=== PATIENT | male | born 1960 | race Two or more races ===

== ENCOUNTER 2022-05-12 08:09 | Emergency (ER) | payer OTHER ==
[~2022-05-12] VITALS: Ht 172.7 cm; Wt 79.4 kg
[2022-05-12] MEDS ORDERED: HYZAAR 100-251 EACH PO (08:56)
[2022-05-12] MEDS ORDERED: SYNTHROID175 MCG PO (08:56)
[2022-05-12] MEDS ORDERED: CRESTOR20 MG PO (08:57)
[2022-05-12] MEDS ORDERED: ADULT LOW DOSE81 M1 PO (08:57)
== END 2022-05-12 10:28 | disposition home or self-care (01) ==
LOC: ER 08:09
DX: S01.122A Laceration with foreign body of left eyelid and periocular area, initial encounter (principal); W18.30XA Fall on same level, unspecified, initial encounter; Y93.9 Activity, unspecified; Y92.019 Unspecified place in single-family (private) house as the place of occurrence of the external cause

== ENCOUNTER 2023-09-19 09:45 | Inpatient (IN) | payer OTHER ==
[~2023-09-19] VITALS: Ht 172.7 cm; Wt 79.4 kg
[~2023-09-19 09:45] MED LIST: ADULT LOW DOSE81 M1 PO; CRESTOR20 MG PO; HYZAAR 100-251 EACH PO; SYNTHROID175 MCG PO
[2023-09-19 11:07] LABS: URINE APPEARANCE Clear; URINE BILIRRUBIN Negative (NEGATIVE); URINE BLOOD Negative; URINE COLOR Yellow; URINE GLUCOSE Negative (NEGATIVE); URINE LEUKOCYTE Negative; URINE NITRATE Negative; URINE PROTEIN Negative (NEGATIVE)
[2023-09-19 11:08] LABS: HEMATOCRIT 43.6 % (39.0-48.0); HEMOGLOBIN 14.8 g/dL (13-16.00); MEAN CORPUSCULAR HEMOGLOBIN 30.6 pg (27.00-32.0); PLATELET COUNT 191 K/uL (150-450); RED BLOOD COUNT 4.84 M/uL (4.00-6.00); RED CELL DISTRIBUTION WIDTH 13.6 % (11.5-14.5)
[2023-09-19 11:10] LABS: URINE EPITHELIAL CELLS 1.8 uL (0.0-38.8); URINE WBC 2.1 uL (0.0-23.2)
[2023-09-19 11:14] LABS: URINE BACTERIA 3.7 uL (0.0-1933); URINE RBC 1.7 uL (0.0-20.8)
[2023-09-19 11:28] LABS: PARTIAL THROMBOPLASTIN TIME 23.7 SECONDS (22.0-34.0); PROTHROMBIN TIME 10.5 SECONDS (9.0-11.5)
[2023-09-19 11:42] LABS: ALBUMIN 4.3 gm/dL (3.4-5.0); BILIRUBIN TOTAL 0.53 mg/dL (0.3-1.2); CALCIUM 9.5 mg/dL (8.5-10.1); CREATININE SERUM 0.87 mg/dL (0.70-1.30); GFR 88.91; GLOBULINA 3.1 G/DL (2.4-3.5); POTASSIUM 4.28 mEq/L (3.5-5.1); TOTAL PROTEIN 7.4 gm/dL (6.4-8.2)
[2023-09-26 06:49] LABS: HEMOGLOBIN 11.2 g/dL (13-16.00); MEAN CORPUSCULAR HEMOGLOBIN 30.9 pg (27.00-32.0); MEAN CORPUSCULAR HGB CONC 33.9 g/dl (32.0-36.0); PLATELET COUNT 147 K/uL (150-450); RED BLOOD COUNT 3.63 M/uL (4.00-6.00); RED CELL DISTRIBUTION WIDTH 14.1 % (11.5-14.5)
[2023-09-26] MEDS ORDERED: PERCOCET 5-3251 EACH PO (08:19)
[2023-09-26] MEDS ORDERED: DUI500 PO (08:19)
[2023-09-26] MEDS ORDERED: ELIQUIS2.5 MG PO (08:19)
[2023-09-27 07:35] LABS: HEMOGLOBIN 10.2 g/dL (13-16.00); MEAN CELL VOLUME 91.9 fL (80.0-100.00); MEAN CORPUSCULAR HEMOGLOBIN 31.2 pg (27.00-32.0); MEAN CORPUSCULAR HGB CONC 33.9 g/dl (32.0-36.0); PLATELET COUNT 131 K/uL (150-450); RED BLOOD COUNT 3.26 M/uL (4.00-6.00); RED CELL DISTRIBUTION WIDTH 14.1 % (11.5-14.5)
== END 2023-09-27 19:00 | DRG 470 ==
LOC: SURH 09-25 06:55 → O/R 09-25 06:55 → SURH 09-25 09:45
PROVIDERS: ADMIT Orthopaedic Surgery; ATTEND Orthopaedic Surgery
PROC: 0MBL0ZZ Excision of Right Hip Bursa and Ligament, Open Approach (ICD-10-PCS; 2023-09-25)
PROC: 0QU60JZ Supplement Right Upper Femur with Synthetic Substitute, Open Approach (ICD-10-PCS; 2023-09-25)
PROC: 0SR90JZ Replacement of Right Hip Joint with Synthetic Substitute, Open Approach (ICD-10-PCS; principal; 2023-09-25 12:30)
DX: M16.11 Unilateral primary osteoarthritis, right hip (principal); D62 Acute posthemorrhagic anemia; I10 Essential (primary) hypertension

== ENCOUNTER 2024-04-15 07:30 | Inpatient (IN) | payer OTHER ==
[~2024-04-15] VITALS: Ht 175.3 cm; Wt 83.9 kg
[~2024-04-15 07:30] MED LIST changes: +DUI500 PO; +ELIQUIS2.5 MG PO; +PERCOCET 5-3251 EACH PO
[2024-04-15 09:45] LABS: HEMATOCRIT 42.5 % (39.0-48.0); HEMOGLOBIN 14.7 g/dL (13-16.00); MEAN CORPUSCULAR HEMOGLOBIN 31.6 pg (27.00-32.0); MEAN CORPUSCULAR HGB CONC 34.7 g/dl (32.0-36.0); PLATELET COUNT 192 K/uL (150-450); RED BLOOD COUNT 4.66 M/uL (4.00-6.00); RED CELL DISTRIBUTION WIDTH 13.6 % (11.5-14.5)
[2024-04-15 09:52] LABS: PH,URINE 5.5 (5.0-8.0); URINE APPEARANCE Clear; URINE BILIRRUBIN Negative (NEGATIVE); URINE BLOOD Negative; URINE COLOR Yellow; URINE GLUCOSE Negative (NEGATIVE); URINE KETONE Negative (NEGATIVE); URINE LEUKOCYTE Negative; URINE NITRATE Negative; URINE PROTEIN Negative (NEGATIVE); URINE UROBILINOGEN 0.2 E.U./dl
[2024-04-15 09:56] LABS: URINE BACTERIA 6.2 uL (0.0-1933); URINE RBC 2.4 uL (0.0-20.8)
[2024-04-15] MEDS ORDERED: CELEBREX200MG PO (09:59)
[2024-04-15] MEDS ORDERED: ADVIL200 M1 PO (09:59)
[2024-04-15] MEDS ORDERED: HORIZANT300 MG PO (09:59)
[2024-04-15 10:10] LABS: INR 1.01; PARTIAL THROMBOPLASTIN TIME 27.2 SECONDS (22.0-34.0); PROTHROMBIN TIME 10.6 SECONDS (9.0-11.5)
[2024-04-15 10:13] LABS: URINE EPITHELIAL CELLS 0.9 uL (0.0-38.8); URINE WBC 1.3 uL (0.0-23.2)
[2024-04-15 10:19] LABS: ALBUMIN 4.4 gm/dL (3.4-5.0); BILIRUBIN TOTAL 0.51 mg/dL (0.3-1.2); CALCIUM 9.7 mg/dL (8.5-10.1); CREATININE SERUM 0.83 mg/dL (0.70-1.30); GFR 93.88; POTASSIUM 4.25 mEq/L (3.5-5.1); TOTAL PROTEIN 7.4 gm/dL (6.4-8.2)
[2024-04-22] MEDS ORDERED: CEFAZOLIN SODIUM 1,000 MG VIAL ONE (07:11)
[2024-04-22] MEDS ORDERED: TRANEXAMIC ACID 100MG/1ML (1000MG) AMPUL IV ONE (07:11)
[2024-04-22] MEDS ORDERED: KETOROLAC TROMETHAMINE 60 MG VIAL IM ONE ×2 (08:37→09:45)
[2024-04-22] MEDS ORDERED: METHYLPREDNISOLONE ACETATE 80 MG/ML VIAL ONE (08:38)
[2024-04-22] MEDS ORDERED: LIDOCAINE HCL 1%/EPINEPHRINE 20ML VIAL IJ ONE ×2 (08:38→09:45)
[2024-04-22] MEDS ORDERED: BUPIVACAINE HCL/MPF 0.5% 30ML VIAL ONE (08:38)
[2024-04-22] MEDS ORDERED: POVIDONE-IODINE 118 ML BOTT TOP ONE ×2 (08:38→09:45)
[2024-04-22] MEDS ORDERED: VANCOMYCIN HCL 1,000 MG VIAL ONE (09:20)
[2024-04-22] MEDS ORDERED: CEFAZOLIN SODIUM 2,000 MG in 0.9 % SODIUM CHLORIDE 100 ML IV ONE (09:45)
[2024-04-22] MEDS ORDERED: VANCOMYCIN HCL 1,000 MG in 0.9 % SODIUM CHLORIDE 250 ML IR ONE (09:45)
[2024-04-22] MEDS ORDERED: MORPHINE SULFATE 4 MG/ML VIAL IV ONE ×2 (09:45→11:40)
[2024-04-22] MEDS ORDERED: TRANEXAMIC ACID 1,000 MG in 0.9 % SODIUM CHLORIDE 100 ML IV ONE (09:45)
[2024-04-22] MEDS ORDERED: METHYLPREDNISOLONE ACETATE 80 MG/ML VIAL IU ONE (09:45)
[2024-04-22] MEDS ORDERED: BUPIVACAINE HCL 30 ML VIAL IJ ONE (09:45)
[2024-04-22] MEDS ORDERED: ENALAPRILAT DIHYDRATE 1.25 MG/ML VIAL IV PRN (12:30)
[2024-04-22] MEDS ORDERED: OxyCODONE HCL 5 MG TABLET (ROXICODONE) PO PRN (13:30)
[2024-04-22] MEDS ORDERED: ONDANSETRON HCL 2 MG/ML VIAL IV PRN (13:30)
[2024-04-22] MEDS ORDERED: MORPHINE SULFATE 4 MG/ML CARTRIDGE IV PRN (13:30)
[2024-04-22] MEDS ORDERED: SODIUM CHLORIDE 0.45 % 1,000 ML IV SCH (13:30)
[2024-04-22] MEDS ORDERED: CEFAZOLIN SODIUM 1,000 MG VIAL IV SCH (17:00)
[2024-04-22] MEDS ORDERED: GABAPENTIN 300 MG CAPSULE PO SCH (17:00)
[2024-04-22] MEDS ORDERED: ACETAMINOPHEN 500 MG GEL..CAP PO SCH (18:00)
[2024-04-23] MEDS ORDERED: LEVOTHYROXINE SODIUM 175 MCG TABLET PO SCH (06:00)
[2024-04-23 07:09] LABS: HEMATOCRIT 38.7 % (39.0-48.0); HEMOGLOBIN 13.1 g/dL (13-16.00); MEAN CELL VOLUME 91.8 fL (80.0-100.00); MEAN CORPUSCULAR HGB CONC 33.7 g/dl (32.0-36.0); PLATELET COUNT 174 K/uL (150-450); RED BLOOD COUNT 4.22 M/uL (4.00-6.00); RED CELL DISTRIBUTION WIDTH 13.5 % (11.5-14.5)
[2024-04-23] MEDS ORDERED: DUI500 PO (08:54)
[2024-04-23] MEDS ORDERED: PERCOCET 5-3251 EACH PO (08:54)
[2024-04-23] MEDS ORDERED: ELIQUIS2.5 MG PO (08:54)
[2024-04-23] MEDS ORDERED: LOSARTAN/HYDROCHLOROTHIAZIDE 1 UDTAB TABLET PO SCH (09:00)
[2024-04-23] MEDS ORDERED: SENNOSIDES 1 TAB TABLET PO SCH (09:00)
[2024-04-23] MEDS ORDERED: APIXABAN 2.5 MG TABLET PO SCH (09:00)
[2024-04-23] MEDS ORDERED: VITAMIN B COMPLEX 1 EACH PO SCH (12:45)
[2024-04-23] MEDS ORDERED: Cyanocobalamin/Mecobalamin 1 TAB.SL SL SCH (12:46)
[2024-04-24 07:01] LABS: HEMATOCRIT 32.6 % (39.0-48.0); HEMOGLOBIN 11.2 g/dL (13-16.00); MEAN CELL VOLUME 90.6 fL (80.0-100.00); MEAN CORPUSCULAR HEMOGLOBIN 31.2 pg (27.00-32.0); MEAN CORPUSCULAR HGB CONC 34.5 g/dl (32.0-36.0); PLATELET COUNT 163 K/uL (150-450); RED BLOOD COUNT 3.59 M/uL (4.00-6.00); RED CELL DISTRIBUTION WIDTH 13.7 % (11.5-14.5)
[2024-04-24] MEDS ORDERED: IRON FUM,PS/FOLIC ACID/VITC/B3 1 CAP CAPSULE PO SCH (09:00)
[2024-04-24] MEDS ORDERED: OxyCODONE HCL 5 MG TABLET (ROXICODONE) PO PRN (14:00)
[2024-04-24] MEDS ORDERED: MORPHINE SULFATE 4 MG/ML CARTRIDGE IV PRN (14:00)
== END 2024-04-24 20:47 | DRG 470 ==
LOC: O/R 04-22 05:37 → SURH 04-22 07:30 → SURG 04-22 12:16 → SURH 04-22 15:45 → SURG 04-24 20:47
PROVIDERS: ADMIT Orthopaedic Surgery; ATTEND Orthopaedic Surgery
PROC: 0SRC0J9 Replacement of Right Knee Joint with Synthetic Substitute, Cemented, Open Approach (ICD-10-PCS; principal; 2024-04-22 15:45)
DX: M17.11 Unilateral primary osteoarthritis, right knee (principal); D62 Acute posthemorrhagic anemia; M22.11 Recurrent subluxation of patella, right knee; I10 Essential (primary) hypertension

== ENCOUNTER 2024-10-20 07:45 | Inpatient (IN) | payer OTHER ==
[~2024-10-20] VITALS: Ht 172.7 cm; Wt 82.6 kg
[~2024-10-20 07:45] MED LIST changes: +ADVIL200 M1 PO; +CELEBREX200MG PO; +HORIZANT300 MG PO
[2024-10-20 09:07] LABS: PH,URINE 5.5 (5.0-8.0); URINE APPEARANCE Clear; URINE BILIRRUBIN Negative (NEGATIVE); URINE BLOOD Negative; URINE COLOR Yellow; URINE GLUCOSE Negative (NEGATIVE); URINE KETONE Negative (NEGATIVE); URINE LEUKOCYTE Negative; URINE NITRATE Negative; URINE PROTEIN Negative (NEGATIVE); URINE UROBILINOGEN 0.2 E.U./dl
[2024-10-20 09:19] LABS: HEMATOCRIT 42.6 % (39.0-48.0); HEMOGLOBIN 14.9 g/dL (13-16.00); MEAN CELL VOLUME 94.7 fL (80.0-100.00); MEAN CORPUSCULAR HEMOGLOBIN 33.2 pg (27.00-32.0); MEAN CORPUSCULAR HGB CONC 35.1 g/dl (32.0-36.0); PLATELET COUNT 163 K/uL (150-450); RED BLOOD COUNT 4.49 M/uL (4.00-6.00)
[2024-10-20 09:48] LABS: URINE RBC 1.3 uL (0.0-20.8)
[2024-10-20 09:49] LABS: URINE BACTERIA 3.6 uL (0.0-1933); URINE EPITHELIAL CELLS 0.7 uL (0.0-38.8); URINE WBC 0.3 uL (0.0-23.2)
[2024-10-20] MEDS ORDERED: LOSARTAN-HCTZ1 EAC1 PO (09:51)
[2024-10-20 09:52] LABS: INR 0.97; PARTIAL THROMBOPLASTIN TIME 25.1 SECONDS (22.0-34.0); PROTHROMBIN TIME 10.6 SECONDS (9.0-11.5)
[2024-10-20 09:58] LABS: ALBUMIN 4.1 gm/dL (3.4-5.0); BILIRUBIN TOTAL 0.27 mg/dL (0.3-1.2); CALCIUM 9.3 mg/dL (8.5-10.1); CREATININE SERUM 0.85 mg/dL (0.70-1.30); GFR 91.04; GLOBULINA 2.8 G/DL (2.4-3.5); POTASSIUM 4.24 mEq/L (3.5-5.1); TOTAL PROTEIN 6.9 gm/dL (6.4-8.2)
[2024-10-20 09:59] VITALS: BP 130/85
[2024-10-20] MEDS ORDERED: MULTIPLE VITAM1 EAC2 PO (09:59)
[2024-10-20] MEDS ORDERED: TYLENOL ARTHRI650 MG PO (10:00)
[2024-10-20] MEDS ORDERED: TRAMADOL HCL E100 M1 PO (10:00)
[2024-10-20 11:00] LABS: RH POSITIVE
[2024-10-28] MEDS ORDERED: KETOROLAC TROMETHAMINE 60 MG VIAL IM ONE (14:23)
[2024-10-28] MEDS ORDERED: POVIDONE-IODINE 118 ML BOTT TOP ONE (14:23)
[2024-10-28] MEDS ORDERED: CEFAZOLIN SODIUM 1,000 MG VIAL ONE ×2 (14:24→18:56)
[2024-10-28] MEDS ORDERED: TRANEXAMIC ACID 100MG/1ML (1000MG) AMPUL IV ONE (14:24)
[2024-10-28] MEDS ORDERED: BUPIVACAINE HCL/MPF 0.5% 30ML VIAL ONE (14:24)
[2024-10-28] MEDS ORDERED: LIDOCAINE HCL 1%/EPINEPHRINE 20ML VIAL IJ ONE (14:24)
[2024-10-28] MEDS ORDERED: ENALAPRILAT DIHYDRATE 1.25 MG/ML VIAL IV PRN (14:45)
[2024-10-28] MEDS ORDERED: VANCOMYCIN HCL 1,000 MG VIAL ONE (15:07)
[2024-10-28] MEDS ORDERED: MORPHINE SULFATE 4 MG/ML CARTRIDGE IV PRN (16:30)
[2024-10-28] MEDS ORDERED: SODIUM CHLORIDE 0.45 % 1,000 ML IV SCH (16:30)
[2024-10-28] MEDS ORDERED: ONDANSETRON HCL 2 MG/ML VIAL IV PRN (16:30)
[2024-10-28] MEDS ORDERED: OxyCODONE HCL 5 MG TABLET (ROXICODONE) PO PRN (16:30)
[2024-10-28] MEDS ORDERED: GABAPENTIN 300 MG CAPSULE PO SCH (17:00)
[2024-10-28] MEDS ORDERED: CEFAZOLIN SODIUM 1,000 MG VIAL IV SCH (17:00)
[2024-10-28] MEDS ORDERED: ACETAMINOPHEN 500 MG GEL..CAP PO SCH (18:00)
[2024-10-28] MEDS ORDERED: ACETAMINOPHEN 500 MG GEL..CAP PO ONE (18:55)
[2024-10-28] MEDS ORDERED: GABAPENTIN 300 MG CAPSULE PO ONE (18:56)
[2024-10-28] MEDS ORDERED: MORPHINE SULFATE 4 MG/ML VIAL IV ONE (19:10)
[2024-10-28 21:40] VITALS: BP 103/71; O2SAT 98
[2024-10-29 00:53] VITALS: BP 103/73; O2SAT 100
[2024-10-29] MEDS ORDERED: LEVOTHYROXINE SODIUM 175 MCG TABLET PO SCH (06:00)
[2024-10-29 07:10] LABS: HEMATOCRIT 34.4 % (39.0-48.0); HEMOGLOBIN 12.1 g/dL (13-16.00); MEAN CELL VOLUME 93.3 fL (80.0-100.00); MEAN CORPUSCULAR HEMOGLOBIN 32.9 pg (27.00-32.0); MEAN CORPUSCULAR HGB CONC 35.2 g/dl (32.0-36.0); PLATELET COUNT 150 K/uL (150-450); RED BLOOD COUNT 3.69 M/uL (4.00-6.00); RED CELL DISTRIBUTION WIDTH 12.6 % (11.5-14.5)
[2024-10-29 08:00] VITALS: BP 107/71; O2SAT 99
[2024-10-29] MEDS ORDERED: ELIQUIS2.5 MG PO (08:42)
[2024-10-29] MEDS ORDERED: PERCOCET 5-3251 EACH PO (08:42)
[2024-10-29] MEDS ORDERED: DUI500 PO (08:42)
[2024-10-29] MEDS ORDERED: SENNOSIDES 1 TAB TABLET PO SCH (09:00)
[2024-10-29] MEDS ORDERED: LOSARTAN/HYDROCHLOROTHIAZIDE 1 UDTAB TABLET PO SCH (09:00)
[2024-10-29] MEDS ORDERED: Cyanocobalamin/Mecobalamin 1 TAB.SL SL NR (14:00)
[2024-10-29 17:00] VITALS: BP 112/63; O2SAT 100
[2024-10-29] MEDS ORDERED: SOD FERRIC GLUC COMPLX/SUCROSE 62.5 MG/5 ML AMPUL IV SCH (17:00)
[2024-10-29] MEDS ORDERED: VITAMIN B COMPLEX 1 EACH PO SCH (17:00)
[2024-10-30 00:44] VITALS: BP 115/71; O2SAT 97
[2024-10-30 07:12] LABS: HEMATOCRIT 33.8 % (39.0-48.0); HEMOGLOBIN 11.9 g/dL (13-16.00); MEAN CELL VOLUME 93.4 fL (80.0-100.00); MEAN CORPUSCULAR HEMOGLOBIN 32.9 pg (27.00-32.0); MEAN CORPUSCULAR HGB CONC 35.2 g/dl (32.0-36.0); PLATELET COUNT 142 K/uL (150-450); RED BLOOD COUNT 3.62 M/uL (4.00-6.00); RED CELL DISTRIBUTION WIDTH 12.9 % (11.5-14.5)
[2024-10-30 08:09] VITALS: BP 115/70; O2SAT 99
[2024-10-30] MEDS ORDERED: Cyanocobalamin/Mecobalamin 1 TAB.SL SL SCH (09:00)
[2024-10-30] MEDS ORDERED: IRON FUM,PS/FOLIC ACID/VITC/B3 1 CAP CAPSULE PO SCH (09:00)
[2024-10-30] MEDS ORDERED: APIXABAN 2.5 MG TABLET PO STA (10:19)
[2024-10-30 18:35] VITALS: BP 110/74; O2SAT 98
[2024-10-30] MEDS ORDERED: APIXABAN 2.5 MG TABLET PO SCH (21:00)
== END 2024-10-30 21:42 | DRG 470 ==
LOC: O/R 10-28 06:05 → SURH 10-28 07:45
PROVIDERS: ADMIT Orthopaedic Surgery; ATTEND Orthopaedic Surgery
PROC: 0SUD07Z Supplement Left Knee Joint with Autologous Tissue Substitute, Open Approach (ICD-10-PCS; 2024-10-28)
PROC: 0SRD0JZ Replacement of Left Knee Joint with Synthetic Substitute, Open Approach (ICD-10-PCS; principal; 2024-10-28 10:00)
DX: M17.12 Unilateral primary osteoarthritis, left knee (principal); D62 Acute posthemorrhagic anemia; M22.12 Recurrent subluxation of patella, left knee; I10 Essential (primary) hypertension; E03.9 Hypothyroidism, unspecified

== ENCOUNTER 2025-04-21 08:00 | Inpatient (IN) | payer OTHER ==
[~2025-04-21] VITALS: Ht 172.7 cm; Wt 81.6 kg
[~2025-04-21 08:00] MED LIST changes: +LOSARTAN-HCTZ1 EAC1 PO; +MULTIPLE VITAM1 EAC2 PO; +TRAMADOL HCL E100 M1 PO; +TYLENOL ARTHRI650 MG PO
[2025-04-21 09:18] VITALS: BP 114/64
[2025-04-21] MEDS ORDERED: COZAAR100 MG PO (09:21)
[2025-04-21 09:38] LABS: INR 1.01
[2025-04-21 09:47] LABS: COVID-19 AG NEGATIVE (NEGATIVE)
[2025-04-28] MEDS ORDERED: TRANEXAMIC ACID 100MG/1ML (1000MG) AMPUL IV ONE ×2 (16:15→16:30)
[2025-04-28] MEDS ORDERED: CEFAZOLIN SODIUM 1,000 MG VIAL IV ONE (16:30)
[2025-04-28] MEDS ORDERED: VANCOMYCIN HCL 1,000 MG VIAL IR ONE (16:30)
[2025-04-28] MEDS ORDERED: BUPIVACAINE HCL 30 ML VIAL IJ ONE (16:30)
[2025-04-28] MEDS ORDERED: ISOPROPYL ALCOHOL 30 ML OUNCE TOP ONE (16:30)
[2025-04-28] MEDS ORDERED: MORPHINE SULFATE 4 MG/ML CARTRIDGE IV PRN (19:00)
[2025-04-28] MEDS ORDERED: SODIUM CHLORIDE 0.45 % 1,000 ML IV SCH (19:00)
[2025-04-28] MEDS ORDERED: ONDANSETRON HCL 2 MG/ML VIAL IV PRN (19:00)
[2025-04-28] MEDS ORDERED: OxyCODONE HCL 5 MG TABLET (ROXICODONE) PO PRN (19:00)
[2025-04-28 21:15] VITALS: BP 95/56; O2SAT 96
[2025-04-29] MEDS ORDERED: ACETAMINOPHEN 500 MG GEL..CAP PO SCH
[2025-04-29] MEDS ORDERED: CEFAZOLIN SODIUM 1,000 MG VIAL IV SCH (01:00)
[2025-04-29] MEDS ORDERED: GABAPENTIN 300 MG CAPSULE PO SCH (01:00)
[2025-04-29 01:22] VITALS: BP 109/75; O2SAT 97
[2025-04-29] MEDS ORDERED: LEVOTHYROXINE SODIUM 175 MCG TABLET PO SCH (06:00)
[2025-04-29 06:51] LABS: BASO % 0.3 % (0.1-1.2); EOS # 0.08 (0.04-0.54); EOS % 0.8 % (0.7-7.0); LYMPH # 1.51 (1.18-3.74); LYMPH % 15.1 % (19.3-53.1); MEAN PLATELET VOLUME 11.10 fl (9.4-12.4); MONO # 0.89 (0.24-0.82); MONO % 8.9 % (4.7-12.5); NEUT # 7.41 (1.56-6.13); NEUT % 74.4 % (34.0-71.1); RED CELL DISTRIBUTION WIDTH 13.1 % (11.6-14.4)
[2025-04-29 08:00] VITALS: BP 90/56; O2SAT 97
[2025-04-29] MEDS ORDERED: APIXABAN 2.5 MG TABLET PO SCH (09:00)
[2025-04-29] MEDS ORDERED: SENNOSIDES 1 TAB TABLET PO SCH (09:00)
[2025-04-29] MEDS ORDERED: LOSARTAN POTASSIUM 100 MG TABLET PO SCH (09:00)
[2025-04-29 12:42] LABS: ALT/SGPT 33.0 U/L (12-78); AST/SGOT 19.0 U/L (15-37); BILIRUBIN TOTAL 0.45 mg/dL (0.3-1.2); BUN CREA RATIO 14.0 (7.0-25.0); CREATININE SERUM 0.88 mg/dL (0.70-1.30); GFR 87.46; GLOBULINA 2.3 G/DL (2.4-3.5); GLUCOSE FASTING 109.0 mg/dL (65-100); OSMOLALITY SERUM 285.0 MOSM/KG (275-295)
[2025-04-29] MEDS ORDERED: SOD FERRIC GLUC COMPLX/SUCROSE 62.5 MG/5 ML AMPUL IV SCH (13:19)
[2025-04-29] MEDS ORDERED: Cyanocobalamin/Mecobalamin 1 TAB.SL SL SCH (13:19)
[2025-04-29 13:49] LABS: COVID-19 AG NEGATIVE (NEGATIVE)
[2025-04-29 18:21] VITALS: BP 123/82; O2SAT 98
[2025-04-30 02:42] VITALS: BP 100/62; O2SAT 98
[2025-04-30 06:53] LABS: BASO % 0.6 % (0.1-1.2); EOS # 0.09 (0.04-0.54); EOS % 0.8 % (0.7-7.0); LYMPH # 1.80 (1.18-3.74); LYMPH % 15.7 % (19.3-53.1); MEAN PLATELET VOLUME 10.80 fl (9.4-12.4); MONO # 1.21 (0.24-0.82); MONO % 10.6 % (4.7-12.5); NEUT # 8.23 (1.56-6.13); NEUT % 72.0 % (34.0-71.1); RED CELL DISTRIBUTION WIDTH 12.6 % (11.6-14.4)
[2025-04-30 08:00] VITALS: BP 107/68; O2SAT 98
[2025-04-30] MEDS ORDERED: IRON FUM,PS/FOLIC ACID/VITC/B3 1 CAP CAPSULE PO SCH ×2 (09:00)
[2025-04-30 16:00] VITALS: BP 102/64; O2SAT 99
[2025-04-30] MEDS ORDERED: PERCOCET 5-3251 EACH PO (18:46)
[2025-04-30] MEDS ORDERED: CEFADROXIL500 MG PO (18:46)
[2025-04-30] MEDS ORDERED: ELIQUIS2.5 MG PO (18:46)
== END 2025-04-30 19:00 | DRG 466 ==
LOC: SURH 04-28 08:00 → O/R 04-28 10:00 → SURH 04-28 19:16
PROVIDERS: ADMIT Orthopaedic Surgery; ATTEND Orthopaedic Surgery
PROC: 0QS604Z Reposition Right Upper Femur with Internal Fixation Device, Open Approach (ICD-10-PCS; 2025-04-28)
PROC: 0QU60KZ Supplement Right Upper Femur with Nonautologous Tissue Substitute, Open Approach (ICD-10-PCS; 2025-04-28)
PROC: 0QU60JZ Supplement Right Upper Femur with Synthetic Substitute, Open Approach (ICD-10-PCS; 2025-04-28)
PROC: 0SW90JZ Revision of Synthetic Substitute in Right Hip Joint, Open Approach (ICD-10-PCS; principal; 2025-04-28 20:45)
DX: T84.090A Other mechanical complication of internal right hip prosthesis, initial encounter (principal); T84.030A Mechanical loosening of internal right hip prosthetic joint, initial encounter; S72.111A Displaced fracture of greater trochanter of right femur, initial encounter for closed fracture; M25.751 Osteophyte, right hip; Y65.8 Other specified misadventures during surgical and medical care